=== PATIENT | female | born 1995 | race Two or more races ===

== ENCOUNTER 2016-05-19 23:15 | Emergency (ER) | payer SELFPAY ==
--- NOTE | 2016-05-19 23:52 | EDPHY ---
HPI/HX/ROS/PE/MDM Narrative: Chief complaint: Overdose HPI: 20-year-old female with a history of anxiety and depression states that earlier this evening she took 150.5 mg Xanax for 20 mg Lexapro 5 10 mg BuSpar and 1 Adderall. Patient states that she was feeling weak out prior to this she took these to calm down and decided the best way to feel better was to go out partying. Patient states that she thought taking his medications would help her with that. She denies that this was a suicide attempt. Does not have a history of suicide attempts in the past for her. No recent illness. No fevers or chills. No nausea or vomiting. No shortness of breath. Last menstrual cycle was 11 April 2016. Does not believe she is . She is brought in by a friend for evaluation. ROS: 10 point Review of Systems is negative except as noted in the HPI. Physical exam: Gen: Awake, Alert, No Distress, speech is slurred HEENT: Nose: no rhinorrhea Eyes: PERRLA, EOMI Mouth: Moist mucosa Neck: Supple, no JVD Chest: nontender, lungs clear to auscultation Heart: S1, S2 normal, no murmur Abd: Soft, non-tender, no guarding Back: no CVA tenderness, no midline tenderness Ext: no edema, non-tender Skin: no rash Neuro: CN II-XII intact, Sensation grossly intact, Strength 5/5 in bilateral upper and lower extremities (Cullen Estrada) ED Course: This patient was turned over to me at change of shift. I just had a long discussion with her and her sister. She had no intention whatsoever of trying to kill herself. She was just trying to democrat. She uses those pills once or twice a week for her anxiety and wanted to democrat hard according to her and her sister. She did not realize that the pills could cause respiratory depression vomiting or potentially . She was able to walk when she took all the pills so she did not think it was a problem. She is not at all in any way suicidal. She was only trying to democrat according to her she is totally learned her lesson she said she will never take that many pills again she does not want to hurt herself or hurt her family or and up in the ER. (Howard Ballesteros) 20-year-old with that polypharmacy overdose that she took because she was feeling agitated and anxious and was trying to democrat. She has slurred speech and is intoxicated by the benzos here. She does have a history of depression. She will be put on a detain her until she can be medically clear and is mentating appropriately to be able to contract for safety. (Cullen Estrada) - Data Points Laboratory Results: Laboratory Results 05/19/16 23:37 05/19/16 23:37 05/20/16 05/20/16 05/19/16 06:40 05:50 23:37 WBC 12.58 H 10^3/uL (3.80-9.50) RBC 4.98 10^6/uL (4.18-5.33) Hgb 14.4 g/dL (12.6-16.3) Hct 42.8 % (38.0-47.0) MCV 85.9 fL (81.5-99.8) MCH 28.9 pg (27.9-34.1) MCHC 33.6 g/dL (32.4-36.7) RDW 13.2 % (11.5-15.2) Plt Count 329 10^3/uL (150-400) MPV 10.2 fL (8.7-11.7) Neut % (Auto) 70.4 % (39.3-74.2) Lymph % (Auto) 20.9 % (15.0-45.0) [place] % (Auto) 6.4 % (4.5-13.0) Eos % (Auto) 1.1 % (0.6-7.6) Baso % (Auto) 0.6 % (0.3-1.7) Nucleat RBC Rel Count 0.0 % (0.0-0.2) Absolute Neuts (auto) 8.86 H 10^3/uL (1.70-6.50) Absolute Lymphs (auto) 2.63 10^3/uL (1.00-3.00) Absolute Monos (auto) 0.81 H 10^3/uL (0.30-0.80) Absolute Eos (auto) 0.14 10^3/uL (0.03-0.40) Absolute Basos (auto) 0.07 10^3/uL (0.02-0.10) Absolute Nucleated RBC 0.00 10^3/uL (0-0.01) Immature Gran % 0.6 % (0.0-1.1) Immature Gran # 0.07 10^3/uL (0.00-0.10) Sodium 145 H mEq/L (134-144) Potassium 3.6 mEq/L (3.5-5.2) Chloride 111 H mEq/L (97-110) Carbon Dioxide 23 mEq/l (22-31) Anion Gap 11 mEq/L (8-16) BUN 15 mg/dL (7-23) Creatinine 0.7 mg/dL (0.6-1.0) Estimated GFR > 60 Glucose 88 mg/dL (70-100) Calcium 8.8 mg/dL (8.5-10.4) Beta HCG, Qual NEGATIVE Salicylates < 1.0 L mg/dL (2.0-20.0) Urine Opiates Screen Pending NEGATIVE (NEGATIVE) Acetaminophen < 10 L mcg/mL (10.0-30.0) Urine Barbiturates Pending NEGATIVE (NEGATIVE) Ur Phencyclidine Scrn Pending NEGATIVE (NEGATIVE) Ur Amphetamine Screen NEGATIVE (NEGATIVE) Ur Amphetamines Screen Pending U Benzodiazepines Scrn Pending NEGATIVE (NEGATIVE) Urine Cocaine Screen Pending NEGATIVE (NEGATIVE) U Marijuana (THC) Screen Pending NEGATIVE (NEGATIVE) Ethyl Alcohol < 10 mg/dL (0-10) General Time Seen by Provider: 05/19/16 23:41 Initial Vital Signs: Initial Vital Signs Temperature (C) 36.7 C 05/19/16 23:19 Heart Rate 66 05/19/16 23:19 Respiratory Rate 14 05/19/16 23:19 Blood Pressure 130/85 H 05/19/16 23:19 O2 Sat (%) 98 05/19/16 23:19 O2 Delivery Mode Room Air Allergies/Adverse Reactions: No Known Allergies Allergy (Unverified 05/19/16 23:18) Home Medications: Medication Instructions Recorded Adderall 10 mg Tablet 05/19/16 Lexapro 05/19/16 Xanax 05/19/16 busPIRone 05/19/16 Departure - Departure Disposition: Home, Routine, Self-Care Clinical Impression: Accidental drug overdose, Benzodiazepine abuse Condition: Good Instructions: Benzodiazepine Abuse (ED), Benzodiazepine Overdose (ED) Referrals: NONE *PRIMARY CARE P,. [Primary Care Provider] - As per Instructions
[2016-05-19 23:55] LABS: % IMMATURE GRANULYOCYTES 0.6 % (0.0-1.1); ABSOLUTE IMMATURE GRANULOCYTES 0.07 10^3/uL (0.00-0.10); ADD DIFF? NO; ADD MORPH? NO; ADD SCAN? NO; ATYPICAL LYMPHOCYTE FLAG 20 (0-99); FRAGMENT RBC FLAG 0 (0-99); HEMATOCRIT 42.8 % (38.0-47.0); HEMOGLOBIN 14.4 g/dL (12.6-16.3); LEFT SHIFT FLG 0 (0-99); LIPEMIA HEMOLYSIS FLAG 80 (0-99); MEAN CELL HEMOGLOBIN 28.9 pg (27.9-34.1); MEAN CELL HEMOGLOBIN CONCENTR. 33.6 g/dL (32.4-36.7); MEAN CELL VOLUME 85.9 fL (81.5-99.8); MEAN PLATELET VOLUME 10.2 fL (8.7-11.7); PLATELET CLUMPS FLAG 0 (0-99); PLATELET COUNT 329 10^3/uL (150-400); RED BLOOD CELL COUNT 4.98 10^6/uL (4.18-5.33); RED CELL DISTRIBUTION WIDTH 13.2 % (11.5-15.2)
--- NOTE | 2016-05-19 23:57 | CPEKG ---
Heart Rate: 64 RR Interval: 938 P-R Interval: 126 QRSD Interval: 84 QT Interval: 428 QTC Interval: 442 P [place]: -43 QRS [place]: 75 T Wave [place]: 61 EKG Severity - NORMAL ECG - EKG Impression: SINUS RHYTHM Electronically Signed By: Cullen Estrada 20-May-2016 07:47:34
[2016-05-20 00:24] LABS: ANION GAP 11 mEq/L (8-16); CALCIUM 8.8 mg/dL (8.5-10.4); CARBON DIOXIDE 23 mEq/l (22-31); CHLORIDE 111 mEq/L (97-110); CREATININE 0.7 mg/dL (0.6-1.0); ETHANOL SERUM < 10 mg/dL (0-10); GLOMERULAR FILTRATION RATE > 60; GLUCOSE 88 mg/dL (70-100); POTASSIUM 3.6 mEq/L (3.5-5.2); SALICYLATE < 1.0 mg/dL (2.0-20.0); SODIUM 145 mEq/L (134-144)
[2016-05-20 05:58] VITALS: BP 106/65
[2016-05-20 06:44] VITALS: O2SAT 96
[2016-05-20 07:33] VITALS: PULSE 79; RESP 18; TEMP 97.2
[2016-05-20 07:37] LABS: PHENCYCLIDINE URINE BCH < 6 ng/ml (NEGATIVE); TETRAHYDROCANNABINOL URINE < 5 ng/mL (NEGATIVE)
[2016-05-20 07:50] LABS: PHENCYCLIDINE URINE BCH NEGATIVE (NEGATIVE); TETRAHYDROCANNABINOL URINE NEGATIVE (NEGATIVE)
== END 2016-05-20 07:25 | disposition home or self-care (01) ==
DX: T42.4X1A Poisoning by benzodiazepines, accidental (unintentional), initial encounter (principal); T43.221A Poisoning by selective serotonin reuptake inhibitors, accidental (unintentional), initial encounter; T43.501A Poisoning by unspecified antipsychotics and neuroleptics, accidental (unintentional), initial encounter; T43.621A Poisoning by amphetamines, accidental (unintentional), initial encounter; F19.10 Other psychoactive substance abuse, uncomplicated
CPT/HCPCS: 80305; 80307; G0480

== ENCOUNTER 2016-05-21 23:58 | Emergency (ER) | payer SELFPAY ==
--- NOTE | 2016-05-22 00:25 | EDPHY ---
H & P Stated Complaint: Pt took multiple pills "to fall asleep." SI comments to friends. Source: Patient - Personal History LMP (Females 10-55): Irregular Current Tetanus/Diphtheria Vaccine: Yes Current Tetanus Diphtheria and Acellular Pertussis (TDAP): Yes Tetanus Vaccine Date: 2013 - Medical/Surgical History Hx Asthma: No Hx Chronic Respiratory Disease: No Hx Diabetes: No Hx Cardiac Disease: No Hx Renal Disease: No Hx Cirrhosis: No Hx Alcoholism: No Hx HIV/AIDS: No Hx Splenectomy or Spleen Trauma: No Other PMH: PSHx: rhinoplasty. PMHx: depression, anxiety - Social History Smoking Status: Never smoked HPI/ROS: HPI CHIEF COMPLAINT: Suicidal ideation, overdose HISTORY OF PRESENT ILLNESS: This patient is a 20-year-old female, she presents emergency room by private vehicle for suicidal ideation and worsening depression , she tells me that she took 7 Lexapro 20 mg pills as well as approximately 15 extended-release Adderall pills approximately 2 hours ago. This was for self- harm and suicidal ideation. She also tells me that she drank multiple margaritas this evening. She presents emergency room with a friend at bedside by private vehicle. Upon arrival she is slurring her speech is intoxicated with alcohol she is noted to be tachycardic however otherwise in no acute distress. She has been placed on M1 hold by myself. Past Medical History: Depression, anxiety Past Surgical History: nasal surgery Social History: Occasional alcohol use, occasional drug use including cocaine Family History: noncontributory ROS REVIEW OF SYSTEMS: A comprehensive 10 point review of systems is otherwise negative aside from elements mentioned in the history of present illness. Exam Constitutional smells of alcohol, triage nursing summary reviewed, vital signs reviewed, awake/alert. Eyes normal conjunctivae and sclera, EOMI, PERRLA. HENT normal inspection, atraumatic, moist mucus membranes, no epistaxis, neck supple/ no meningismus, no raccoon eyes. Respiratory clear to auscultation bilaterally, normal breath sounds, no respiratory distress, no wheezing. Cardiovascular tachycardic , regular rhythm, no murmur, no edema, distal pulses normal. Gastrointestinal soft, non-tender, no rebound, no guarding, normal bowel sounds, no distension, no pulsatile mass. Genitourinary no CVA tenderness. Musculoskeletal no midline vertebral tenderness, full range of motion, no calf swelling, no tenderness of extremities, no meningismus, good pulses, neurovascularly intact. Skin pink, warm, & dry, no rash, skin atraumatic. Neurologic awake, alert and oriented x 3, AAOx3, moves all 4 extremities equally, motor intact, sensory intact, CN II-XII intact, normal cerebellar, normal vision, Slurring of speech Psychiatric intoxicated with alcohol, flat affect Heme/Lymph/Immune no lymphadenopathy. Differential Diagnosis: Includes but is not limited to in a particular order, worsening depression, suicidal ideation, drug overdose, polysubstance overdose. Medical Decision Making: This patient be placed on a full vehicle monitor technician she will have an EKG, we will check blood work including drug screen, alcohol level , she is on M1 hold. She is intoxicated with alcohol here she received IV fluids will watch her for serotonin syndrome, will watch her for cardiac arrhythmia, agitation due to Adderall overdose. We will also touch base with poison Control. Re-evaluation: EKG interpretation by me on record in [facility] [employer] system. Impression time of EKG is 12:49 a.m., this is sinus rhythm rate of 89. There is no prolonged intervals. No signs of arrhythmia. Unremarkable EKG. 0353: the patient is resting comfortably. Re-evaluation at this time no evidence of serotonin syndrome, no evidence of significant amphetamine overdose specifically she is not anxious, she is not tachycardic, she is not severely tachycardic. She is resting comfortably. Noted her alcohol level. She is on M1 hold will still need mental health evaluation however she is to be observed for 12 hours given the extended release of Adderall. 0455: Re-examination at this time this patient is resting comfortably she has been evaluated by mental health and cleared from her M1 hold. She has a substance abuse problem. She denies being suicidal she tells me that she drank alcohol last night and took medications to get high. She has good follow-up in mental health resources in place. She has been given outpatient resources she also has been taught about the crisis stabilization unit. Upon re-evaluation at this time she does not want hurt herself or anybody else. She does want to get help with her substances. We will able to lift her M1 hold as she does not meet criteria for admission. She was initially placed on M1 hold by myself due to drug intoxication overdose and possible suicidal ideation however she has does not want hurt herself and has forward thinking and plan to live. Her sisters at bedside. She still needs to be medically observed for 12 hours due to the ingestion of extended-release Adderall. She is currently at the 7 hour edgar. She has 4 more hours of observation if she remains stable she can be discharged. 0657: Patient signed over to Dr. Chávez at 7:00 a.m. shift change. Patient is low longer on M1 hold. Patient is almost at the 12 hour edgar of medical clearance for Adderall XL ingestion. (Hang Roberts) Constitutional: Initial Vital Signs Temperature (C) 36.8 C 05/22/16 00:00 Heart Rate 120 H 05/22/16 00:00 Respiratory Rate 18 05/22/16 00:00 Blood Pressure 131/101 H 05/22/16 00:00 O2 Sat (%) 98 05/22/16 00:00 O2 Delivery Mode Room Air Allergies/Adverse Reactions: No Known Allergies Allergy (Verified 05/22/16 00:04) Home Medications: Medication Instructions Recorded Adderall 10 mg Tablet 05/19/16 Lexapro 05/19/16 Xanax 05/19/16 busPIRone 05/19/16 Medical Decision Making Other Provider: Care transferred to [facility] by Dr. Hang Roberts. Patient is currently awake and alert and asking to have her IV removed. She declines further workup or treatment. She has been evaluated by Mental Health and plan to follow up with a crisis stabilization unit. 9:00 a.m. the patient is doing well. She wishes to leave. She is stable. Discharge paperwork is been prepared. (Gaurang Chávez) - Data Points Laboratory Results: Laboratory Results 05/22/16 00:45 05/22/16 00:45 05/22/16 05/22/16 00:45 00:30 WBC 7.98 10^3/uL (3.80-9.50) RBC 5.08 10^6/uL (4.18-5.33) Hgb 14.7 g/dL (12.6-16.3) Hct 42.8 % (38.0-47.0) MCV 84.3 fL (81.5-99.8) MCH 28.9 pg (27.9-34.1) MCHC 34.3 g/dL (32.4-36.7) RDW 12.8 % (11.5-15.2) Plt Count 319 10^3/uL (150-400) MPV 10.0 fL (8.7-11.7) Neut % (Auto) 62.0 % (39.3-74.2) Lymph % (Auto) 26.9 % (15.0-45.0) [place] % (Auto) 7.6 % (4.5-13.0) Eos % (Auto) 1.6 % (0.6-7.6) Baso % (Auto) 0.9 % (0.3-1.7) Nucleat RBC Rel Count 0.0 % (0.0-0.2) Absolute Neuts (auto) 4.94 10^3/uL (1.70-6.50) Absolute Lymphs (auto) 2.15 10^3/uL (1.00-3.00) Absolute Monos (auto) 0.61 10^3/uL (0.30-0.80) Absolute Eos (auto) 0.13 10^3/uL (0.03-0.40) Absolute Basos (auto) 0.07 10^3/uL (0.02-0.10) Absolute Nucleated RBC 0.00 10^3/uL (0-0.01) Immature Gran % 1.0 % (0.0-1.1) Immature Gran # 0.08 10^3/uL (0.00-0.10) Sodium 145 H mEq/L (134-144) Potassium 3.8 mEq/L (3.5-5.2) Chloride 110 mEq/L (97-110) Carbon Dioxide 16 L D mEq/l (22-31) Anion Gap 19 mEq/L (8-16) BUN 24 H mg/dL (7-23) Creatinine 1.0 mg/dL (0.6-1.0) Estimated GFR > 60 Glucose 89 mg/dL (70-100) Calcium 9.4 mg/dL (8.5-10.4) Beta HCG, Qual NEGATIVE Salicylates < 1.0 L mg/dL (2.0-20.0) Urine Opiates Screen NEGATIVE (NEGATIVE) Acetaminophen < 10 L mcg/mL (10.0-30.0) Urine Barbiturates NEGATIVE (NEGATIVE) Ur Phencyclidine Scrn NEGATIVE (NEGATIVE) Ur Amphetamine Screen NON-NEGATIVE H (NEGATIVE) U Benzodiazepines Scrn NEGATIVE (NEGATIVE) Urine Cocaine Screen NEGATIVE (NEGATIVE) U Marijuana (THC) Screen NEGATIVE (NEGATIVE) Ethyl Alcohol 148 H mg/dL (0-10) Medications Given: Discontinued Medications Sodium Chloride (Ns) 1,000 mls @ 0 mls/hr IV ONCE ONE PRN Reason: Wide Open Stop: 05/22/16 00:30 Last Admin: 05/22/16 00:46 Dose: 1,000 mls Lorazepam (Ativan) 1 mg PO EDNOW ONE Stop: 05/22/16 05:41 Last Admin: 05/22/16 07:15 Dose: 1 mg Departure - Departure Disposition: Home, Routine, Self-Care Clinical Impression: Polysubstance abuse Condition: Good Instructions: Abuse of Alcohol (ED), Polysubstance Abuse (ED), Anxiety (ED) Additional Instructions: 1. if you have any worsening symptoms questions or concerns please return emergency room. He started feeling more depressed or you have thoughts of suicide or wanting to harm herself return immediately to the ER. Referrals: NONE *PRIMARY CARE P,. [Primary Care Provider] - As per Instructions
[2016-05-22] MEDS ORDERED: NS 1,000 ML IV ONE (00:29)
--- NOTE | 2016-05-22 00:50 | CPEKG ---
Heart Rate: 89 RR Interval: 674 P-R Interval: 127 QRSD Interval: 80 QT Interval: 380 QTC Interval: 463 P [place]: 36 QRS [place]: 73 T Wave [place]: 61 EKG Severity - NORMAL ECG - EKG Impression: SINUS RHYTHM Electronically Signed By: Barrie Zuniga 23-May-2016 22:20:35
[2016-05-22 00:57] LABS: ABSOLUTE IMMATURE GRANULOCYTES 0.08 10^3/uL (0.00-0.10); ADD DIFF? NO; ADD MORPH? NO; ADD SCAN? NO; ATYPICAL LYMPHOCYTE FLAG 20 (0-99); FRAGMENT RBC FLAG 0 (0-99); HEMATOCRIT 42.8 % (38.0-47.0); HEMOGLOBIN 14.7 g/dL (12.6-16.3); LEFT SHIFT FLG 10 (0-99); LIPEMIA HEMOLYSIS FLAG 90 (0-99); MEAN CELL HEMOGLOBIN 28.9 pg (27.9-34.1); MEAN CELL HEMOGLOBIN CONCENTR. 34.3 g/dL (32.4-36.7); MEAN CELL VOLUME 84.3 fL (81.5-99.8); PLATELET CLUMPS FLAG 0 (0-99); PLATELET COUNT 319 10^3/uL (150-400); RED BLOOD CELL COUNT 5.08 10^6/uL (4.18-5.33); RED CELL DISTRIBUTION WIDTH 12.8 % (11.5-15.2)
[2016-05-22 01:12] LABS: ANION GAP 19 mEq/L (8-16); CALCIUM 9.4 mg/dL (8.5-10.4); CARBON DIOXIDE 16 mEq/l (22-31); CHLORIDE 110 mEq/L (97-110); ETHANOL SERUM 148 mg/dL (0-10); GLOMERULAR FILTRATION RATE > 60; GLUCOSE 89 mg/dL (70-100); POTASSIUM 3.8 mEq/L (3.5-5.2); SALICYLATE < 1.0 mg/dL (2.0-20.0); SODIUM 145 mEq/L (134-144)
[2016-05-22] MEDS ORDERED: LORazepam 1 MG TAB ONE (05:12)
[2016-05-22] MEDS ORDERED: LORazepam 1 MG TAB PO ONE (05:40)
[2016-05-22 09:15] VITALS: BP 118/92; PULSE 110; RESP 15; TEMP 98.8; O2SAT 98
== END 2016-05-22 09:15 | disposition home or self-care (01) ==
DX: F19.10 Other psychoactive substance abuse, uncomplicated (principal)
CPT/HCPCS: 80305; G0480